=== PATIENT | male | born 1995 | race Caucasian/White ===

== ENCOUNTER 2023-05-12 17:42 | Emergency (ER) | payer OTHER, SELFPAY ==
[2023-05-12 17:42] VITALS: BP 138/99; PULSE 72; RESP 16; TEMP 36.6; O2SAT 97; BMI 23.3
--- NOTE | 2023-05-12 17:50 | RAD_ITS ---
INDICATION: PAIN, INJURY EXAMINATION/TECHNIQUE: X-RAY - RIGHT XR Hand Min 3 Views 4 VIEWS COMPARISON: No relevant prior comparison study available FINDINGS: SOFT TISSUES: No soft tissue swelling or gas. No radiopaque foreign body. BONES/JOINTS: Acute minimally displaced obliquely oriented fracture of the fourth proximal metacarpal which may be reaching the carpometacarpal joint.. Normal alignment. Preservation of the joint space.. No sclerotic or destructive changes observed. RAD/Hand Min 3 Views IMPRESSION: Acute minimally displaced obliquely oriented fracture of the fourth proximal carpal. Electronically Signed: Scar Smith MD at 18:20 EST ,
[2023-05-12 19:18] VITALS: RESP 16; O2SAT 100
--- NOTE | 2023-05-12 19:37 | EX.ED.UPPERE ---
HPI History of Present Illness Chief Complaint: Upper Extremity Injury Informant: patient Narrative Narrative: Patient presents with right hand injury. He is right-hand dominant. He states he had his right hand looked into his dog's leash when the dog took off and his hand twisted. He has pain along the fourth metacarpal. He denies pain at the wrist, forearm, or elbow. No paresthesias. PFSH PFSH Medical History no medical history no medical history Home Medications hydrocodone-acetaminophen 5-325mg 5mg-325mg 1 tab PO Q6H PRN PRN Pain 3 days #12 TABLETS 05/12/23 [Rx Last Taken Unknown] Allergy/AdvReac Type Severity Reaction Status Date / Time No Known Allergies Allergy Verified 05/12/23 17:44 Family History no significant family his Surgical History no surgical history Social History Smoking Status: Never smoker ROS ROS ED Constitutional Constitutional ED: Denies chills or fever(s) Eyes Eyes: Denies discharge from eye(s) ENT ENT ED: Denies discharge from eye(s), rhinorrhea or sore throat Cardiovascular Cardiovascular: Denies chest pain Respiratory/Chest Respiratory/Chest: Denies cough or dyspnea Gastrointestinal Gastrointestinal: Denies abdominal pain Musculoskeletal Musculoskeletal: Reports extremity pain Integumentary Denies Abrasions or rash Neurologic Neurologic: Denies headache(s) or paresthesias Allergic/Immunologic Allergic/Immunologic ED: Denies lip swelling or urticaria EXAM Physical Exam Const Vital Signs: 05/12/23 17:42 05/12/23 19:18 Temperature 97.8 F Temperature Source Temporal Pulse Rate 72 Respiratory Rate 16 16 Blood Pressure 138/99 H Blood Pressure Mean 112 Pulse Ox 97 100 Oxygen Delivery Method Room Air Room Air Positive well nourished and well developed General Appearance ED: well developed HEENT Reports moist mucous membranes Eyes EOMs intact bilaterally Neck supple Chest Wall inspection of chest normal and palpation of chest normal Resp normal respiratory effort and clear to auscultation bilaterally Cardio regular rate and regular rhythm Extremity Extremity Narrative: Patient with slight deformity and tenderness along the fourth metacarpal. No tenderness at the wrist or forearm. Good cap refill distally. With stabilization of the MCP joints he can flex and extend his fingers. Neuro oriented x3 and moves all extremities Psych mental status grossly normal MDM MDM MDM Narrative Medical decision making narrative: Right wrist x-ray obtained per nursing protocol prior to my initial evaluation. On my review of the images patient has a oblique fracture of the mid to proximal right fourth metacarpal. Slight displacement noted. Radiology interpretation reviewed and agrees. Images reviewed with patient and significant other. He is placed in a ulnar gutter splint. I did recommend follow-up with hand surgery as these will often require pinning for appropriate healing. This especially important given this is his dominant hand and his young age. He was given information for follow-up with [facility] hand. He was given a prescription for [place] for pain control. Radiography Diagnostic Testing: Clinical Impression(s) from Imaging Studies Hand X-Ray 05/12/23 17:50 IMPRESSION: Acute minimally displaced obliquely oriented fracture of the fourth proximal carpal. Electronically Signed: Scar Smith MD at 18:20 EST , Procedures Upper Extremity Splints Upper Extremity Splint: Orthoglass and Ulnar gutter Splint Fabrication: Fabricated Location: Right Discharge Plan Triage Chief Complaint: Upper Extremity Injury ED Provider: Devora Holguin Dx/Rx/DC Orders Clinical Impression: Hand fracture, right Instructions: ED Closed Hand Fracture (Adult) Prescriptions: New hydrocodone-acetaminophen 5-325 mg tablet 1 tab PO Q6H PRN PRN (Reason: Pain) 3 Days Qty: 12 0RF Primary Care Provider: TORRES GREGORY Referrals: Eusebio Ray MD [Non-Staff] - As soon as possible NOT,DEFINED [Non-Staff] - Disposition Disposition: Home, Self Care Discharge Date/Time: 05/12/23 20:17 Capacity Legal Cardiopulmonary Technician And Eeg Tech Reflex Medical hold order details:: IF a medical hold is selected below, a suggested order for a MEDICAL HOLD will reflex upon signing the document. Next of kin: [place] law dictates a PRIORITY LIST for identifying legal decision-maker/legal next of kin in the following order (LNOK): 1st: The patient?s legal guardian, if any 2nd: The patient's spouse (if status is questionable, consult Risk Management) 3rd: The patient?s adult child(pamela) (majority, if multiple children) 4th: The patient?s parents 5th: The patient?s adult siblings (majority, if multiple children siblings)
--- OUTSIDE RECORDS SUMMARY | 2023-05-12 20:01 | XMS RPT_ITS | CCD ---
Author Name Unknown Address [address] [place] [address] Organization [facility] Care Team Providers Care Lens Shaper Grinder Name Role Phone Paul Estrada Primary Care Provider [phone] Unavailable Primary Care Provider Unavailmiranda e Courtney Gregory DO Primary Care Provider COURTNEY GREGORY Attending Unavailable COURTNEY GREGORY Primary Care Unavailable Medications Current Medications Medication Drug Class(es) Dates Sig (Normalized) Sig (Original) doxycycline monohydrate 100 mg oral capsule (2 sources) Tetracycline-clas s Drug Start: 04-18-2022 End: 04-25-2022 take 1 capsule by mouth twice daily doxycycline monohydrate (MONODOX) 100 mg capsule Indications: Urethral discharge in male Take 1 capsule by mouth twice daily for 7 days. 14 capsule 0 04/18/2022 04/25/2022 Active Completed/Discontinued Medications Medication Drug Class(es) Dates Sig (Normalized) Sig (Original) cefTRIAXone 500 mg injection (1 source) Cephalosporin Antibacterial Start: 04-18-2022 End: 04-18-2022 cefTRIAXone 500 mg intramuscular injection (ROCEPHIN) Protein powd (1 source) End: 04-18-2022 Protein powd Take by mouth. 0 04/18/2022 Discontinued Problems Active Problems Problem Classification Problem Date Documented Da te Episodic/Chronic Anxiety disorders (1 source) Social phobia; Translations: [Social anxiety disorder] Onset: 02-25-2016 04-05-2016 Chronic Genitourinary symptoms and ill-defined conditions (2 sources) Discharge from penis; Translations: [Urethral discharge, unspecified] Episodic Mood disorders (1 source) Major depressive disorder; Translations: [Major depression] Onset: 07-26-2015 04-05-2016 Chronic Other eye disorders (1 source) Retained foreign body in eye; Translations: [Foreign body of left eye, initial encounter] Chronic Other eye disorders (1 source) Corneal rust ring; Translations: [Corneal rust ring of left eye] Episodic Other inflammatory condition of skin (1 source) Scalp psoriasis; Translations: [Psoriasis, unspecified] 02-03-2023 Chronic Other inflammatory condition of skin (2 sources) Psoriasis, unspecified; Translations: [Psoriasis, unspecified] Onset: 02-03-2023 Chronic Other male genital disorders (1 source) Lesion of penis; Translations: [Disorder of penis, unspecified] 02-03-2023 Chronic Other male genital disorders (2 sources) Disorder of penis, unspecified; Translations: [Disorder of penis, unspecified] Onset: 02-03-2023 Chronic Past or Other Problems Problem Classification Problem Date Documented Da te Episodic/Chronic Headache; including migraine (1 source) Tension-type headache; Translations: [Tension headache] Onset: 10-17-2015 04-05-2016 Episodic Other nervous system disorders (1 source) H/O: migraine; Translations: [History of migraine] Resolved: 10-17-2015 10-17-2015 Episodic Results Test Name Value Interpretation Reference Range Facil ity Vital Signs Date Time Vital Sign Value Performing Clinician Facility 04-18-2022 12:37-0500 Body temperature 97.7 [degF] Issac Mulligan MD Work Phone: [facility] 04-18-2022 12:37-0500 Body weight 73.57 kg Issac Mulligan MD Work Phone: [facility] 04-18-2022 12:37-0500 Diastolic blood pressure 92 mm[Hg] Issac Mulligan MD Work Phone: [facility] 04-18-2022 12:37-0500 Heart rate 112 /min Issac Mulligan MD Work Phone: [facility] 04-18-2022 12:37-0500 Respiratory rate 18 /min Issac Mulligan MD Work Phone: [facility] 04-18-2022 12:37-0500 SaO2% (BldA) [Mass fraction] 97 % Issac Mulligan MD Work Phone: [facility] 04-18-2022 12:37-0500 Systolic blood pressure 132 mm[Hg] Issac Mulligan MD Work Phone: [facility] 12-22-2019 09:55-0400 Body Temperature 98.01 [degF] Jean Jc [facility] 12-22-2019 09:55-0400 BP Diastolic 86 mm[Hg] Jean Jc [facility] 12-22-2019 09:55-0400 BP Systolic 144 mm[Hg] [facility] 12-22-2019 09:55-0400 Pulse (Heart Rate) 80 /min Jean Jc [facility] 12-22-2019 09:55-0400 Pulse Oximetry 98 % Jean Jc [facility] 12-22-2019 09:55-0400 Respiratory Rate 16 /min Jean Jc [facility] Encounters Encounter Date Encounter Type Care Provider Facility Start: 02-03-2023 End: 02-03-2023 ambulatory [facility] Start: 02-03-2023 End: 02-03-2023 Encounter for general adult medical examination without abnormal findings [facility] Start: 02-03-2023 End: 02-03-2023 Initial preventive medicine new pt age 18-39yrs [facility] Work Phone: [facility] Procedures Date Procedure Procedure Detail Performing Clinician Start: 04-18-2022 End: 04-18-2022 Culture bacterial quanttative colony count urine Issac Mulligan MD Work Phone: Start: 04-18-2022 Urnls dip stick/tabl et rgnt auto w/o microscopy Issac Mulligan MD Work Phone: Start: 03-01-2019 Antibody screen Plan of Treatment Date Care Activity Detail Author Start: 01-24-2044 Zoster Vaccines (1 of 2) Zoste r Vaccines (1 of 2) [facility] Start: 12-25-2022 Influenza vaccination Influenza Vacc ine (#1) [facility] Start: 12-25-2021 Influenza vaccination INFLUENZA (#1) [facility] Start: 04-26-2021 DEPRESSION ASSESSMENT DEPRESSION ASS ESSMENT [facility] Start: 12-26-2019 Influenza vaccination Flu vaccine (# 1) [place] Start: 01-24-2016 DTaP/Tdap/Td Vaccine s (1 - Tdap) DTaP/Tdap/Td Vaccines (1 - Tdap) [facility] Start: 2013 DTaP/Tdap/Td vaccine (1 - Tdap) DTaP/Tdap/Td vaccine (1 - Tdap) [place] Start: 2013 Urine microalbumin profile DTAP,TDAP,TD (1 - Tdap) [facility] Start: 01-24-2012 HEPATITIS C SCREENING HEPATITIS C [facility] Start: 01-24-2012 Hepatitis C screening Hepatitis C [facility] Start: 01-24-2012 HIV SCREENING HIV SCREENING [facility] Start: 2009 HIV screening HIV screen [place], [place] Start: 2005 HPV vaccine (1 - Mal e 2-dose series) HPV vaccine (1 - Male 2-dose series) [place] Start: 1995 MMR Vaccines (1 of 1 - Standard series) MMR Vaccines (1 of 1 - Standard series) [facility] Start: 1995 Varicella vaccination Varicell a Vaccines (1 of 2 - 2-dose childhood series) [facility] Start: 1995 Varicella vaccine (1 of 2 - 2-dose childhood series) Varicella vaccine (1 of 2 - 2-dose childhood series) [place] Start: 1994 COVID-19 VACCINE (#1) COVID-19 VACCI NE (#1) [facility] Start: 1994 HEPATITIS B (1 of 3 - 3-dose series) HEPATITIS B (1 of 3 - 3-dose series) [facility] Start: 1994 Hepatitis B Vaccines (1 of 3 - 3-dose series) Hepatitis B Vaccines (1 of 3 - 3-dose series) [facility] Start: 1994 HIV screening HIV Screening [facility] Start: 1994 Lipid panel Lipid Panel [facility] Start: 1994 Yearly Adult Physical Yearly Adult P hysical [facility] Immunizations Immunization Date Immunization Notes Care Provider Dylon lowe 05-13-2016 tuberculin skin test ; purified protein derivative solution, intradermal [facility] 08-30-2015 tuberculin skin test ; purified protein derivative solution, intradermal Jean Dickson [facility] Payers Date Payer Category Payer Private Health Insurance [id number] 2021 Private Health Insurance [id number] 2021 Unknown [id number] 2017 [employer] ( and others) [facility] [id number] 2017-Present [address] [place] [address] [id number] 1994 Unknown [id number] Social History Date Type Detail Facility Start: 12-22-2019 End: 02-03-2023 Tobacco smoking status NHIS Never smoker [facility] Start: 12-22-2019 End: 02-03-2023 Tobacco use and exposure Never used [place] Start: 12-22-2019 Alcohol intake Current drinke r of alcohol (finding) [place] Start: 08-02-2015 Alcohol Comment ocassionally [facility] [place] Start: 1994 Sex Assigned At Not on file [place] Start: 01-24-2023 End: 02-03-2023 Exposure to SARS-CoV-2 (event) Not sure [place] Start: 02-03-2023 Alcohol intake Lifetime non-d katya (finding) [facility] Work Phone: Gender identity Not on file [facility] Work [facility]: Medical Equipment Procedure Code Equipment Code Equipment Origin al Text Equipment Identifier Dates fluorescein ophthalmic strip 1 mg [id number] Start: 12-22-2019 End: 12-22-2019 Wire, Isael, Dual Trocar, 0.045 X 4 In, Stainless Steel Case [id number] Start: 03-01-2019 History of Present illness Narrative 02-03-2023 Courtney Gregory, DO - 02/03/2023 10:30 AM EDT Note Date & Type Note Facility 02-03-2023 History of Present illness Narrative Subjective Patient ID: Adam Ware is a 28 y.o. male who presents for Annual Exam, Psoriasis, and spots on penis. HPI Diet: low calorie, well rounded Supplements/vitamins: none Alcohol use: N Caffeine intake: N Exercise: Y, regularly Sleep: no issues Last dental appointment: last week Last eye appointment: few years ago Anxiety/Depression: see below Cscope: n/a Fmhx colon cancer: N Tobacco use/Lung cancer screening: N Recreational drug use: N Immunizations: due for Tdap Would like refill on his shampoo for psoriasis. Used to dermatology PHQ-9 :4 MARINA-7: 7 Reports current anxiety no depression. Feels stable and as though this is manageable. No panic attacks recently, no SI. Penile lesions X 10 years No known h/o HPV Nonpainful, not itching Has on average 4-6 Never fluctuate in size and do not resolve No prior treatment, no eval by dermatology Review of Systems All other systems reviewed and are negative. Objective There were no vitals taken for this visit. Physical Exam [employer] Con[employer] Blower Present: Yes. [place] Con[employer] Blower Name/Title: Mylene Dale MA Examination Chaperoned: Genitourinary Exam Constitutional: Well developed, well nourished, alert and in no acute distress. Head and Face: Normocephalic, atraumatic. Eyes: Normal external exam. Pupils equally round and reactive to light with normal accommodation and extraocular movements intact. ENT: External inspection of ears normal, tympanic membranes visualized and normal. Nasal mucosa, septum, and turbinates normal. Oral mucosa moist, oropharynx clear. Neck: Supple, no lymphadenopathy or masses. Thyroid not enlarged, no palpable nodules. Cardiovascular: Regular rate and rhythm, normal S1 and S2, no murmurs, gallops, or rubs. Radial pulses normal. No peripheral edema. No carotid bruits. Pulmonary: No respiratory distress, lungs clear to auscultation bilaterally. No wheezes, rhonchi, rales. Abdomen: Soft, nontender, nondistended, normal bowel sounds. No masses palpated. No hernias. Genitourinary: +erythematous and flesh colored minute papules notes at base of penis. Musculoskeletal: Gait normal. Muscle strength/tone normal. Normal range of motion of all extremities. Skin: Warm, well perfused, normal skin turgor and color, no lesions or rashes noted. Neurologic: Cranial nerves II-XII grossly intact. Deep tendon reflexes were 2+ and symmetric. Sensation normal bilaterally. Psychiatric: Mood calm and affect normal. Assessment/Plan It is highly recommended that you be evaluated by dermatology. We discussed that the penile lesions appear to be consistent with HPV (virus). This is the virus that can potentially cause penile and cervical cancers. Dermatology: [facility] Recommendations for men annual wellness exam: Colonoscopy at age 50 or earlier if positive family history of colon cancer Discuss prostate cancer screening between ages 55-69 or sooner if family history of prostate cancer One time screen for abdominal aortic aneurysm for men ages 65-75 who have ever smoked Screening for lung cancer with low-dose CT in all adults age 55-77 who have a 30 pack-year smoking history and currently smoke or have quit within the past 15 years Follow a healthy diet (Dash diet, Mediterranean diet) Exercise 150 min/wk Maintain healthy weight (BMI < 25) Do not smoke Alcohol in moderation (up to 2 drinks/day) Get enough sleep (7-8 hours/night) Make sure immunizations are up to date (influenza, pneumococcal, Tdap, shingles if age > 50)-due for Tdap Visit dentist twice yearly Follow up in 1 year documented in this encounter [facility] Work Phone: Note 04-20-2022 Telephone Encounter - Courtney Lopez RN - 04/20/2022 8:52 AM ESTTelephone Encounter - Yaa Eason MA - 04/20/2022 8:05 AM ESTTelephone Encounter - Suma Polk APRN.CNP - 04/19/2022 3:28 PM EST Note Date & Type Note Facility 04-20-2022 Miscellaneous Notes Formattin g of this note might be different from the original. Patient notified of results and provider's instructions. Patient verbalizes understanding. Courtney Lopez RN Left message for pt to call back. Yaa Eason MA Urine culture and gonorrhea culture negative. You were positive for Chlamydia - continue doxycycline as prescribed at visit, abstinence for 7 days, partner needs treated. Suma Polk APRN.NIR documented in this encounter [facility] Progress note 04-18-2022 Note Date & Type Note Facility 04-18-2022 Note HNO ID: [id number] Author: Issac Mulligan MD Service: ? Author Type: Physician Type: Progress Notes Filed: 04/18/2022 1:40 PM Note Text: Patient presents with: STD: Check, discomfort and discharge x4 days Frequency of urination HPI: Symptoms for 4 days. Dysuria: Yes Discharge: yes Lesion: Denies erythema, rash, papule, pustule, vesicle, or ulcer Frequency: Yes Hematuria: No Nausea: No Fever or chills: No Abdominal pain: some Prior STI: had GC or CT once before New partner for a few weeks. MEDICATIONS: No current outpatient medications on file. No current facility-administered medications for this visit. ALLERGIES: ALLERGIES No Known Allergies VITALS: BP 132/92 Pulse 112 Temp 36.5 ?C (97.7 ?F) Resp 18 Wt 73.6 kg (162 lb 3.2 oz) SpO2 97% BMI 23.95 kg/m? PHYSICAL EXAM: GEN: NAD HEENT: EOMI, conjunctiva clear, moist mucous membranes HEART: regular rate and rhythm, no murmurs LUNGS: clear to auscultation, no wheezes or crackles, no increased WOB ABDOMEN: Soft, nondistended, no masses, + suprapubic pressure with palpation BACK: No CVA tenderness ASSESSMENT/PLAN: 1. Urethral discharge in male - ICD9: 788.7, ICD10: R36.9 (primary diagnosis) Patient would like treatment for suspected gonorrhea or chlamydia. - GC/CHLAMYDIA AMPLIF, URINE - CEFTRIAXONE 500 MG SOLUTION FOR INJECTION -Doxycycline twice a day for 7 days. Refrain from sexual intercourse 7 days. All partners should receive treatment to avoid reinfection. 2. Urinary frequency - ICD9: 788.41, ICD10: R35.0 - UA positive for trace gunnar esterase - Send urine for culture, likely urethritis rather than cystitis. Has received rocephin today. - UA DIP, URINE (POC) Issac Mulligan MD [facility] History of Present illness Narrative 04-18-2022 Issac Mulligan MD - 04/18/2022 12:56 PM EST Note Date & Type Note Facility 04-18-2022 History of Presen t illness Narrative Patient presents with: STD: Check, discomfort and discharge x4 days Frequency of urination HPI: Symptoms for 4 days. Dysuria: Yes Discharge: yes Lesion: Denies erythema, rash, papule, pustule, vesicle, or ulcer Frequency: Yes Hematuria: No Nausea: No Fever or chills: No Abdominal pain: some Prior STI: had GC or CT once before New partner for a few weeks. MEDICATIONS: No current outpatient medications on file. No current facility-administered medications for this visit. ALLERGIES: ALLERGIES No Known Allergies VITALS: BP 132/92 Pulse 112 Temp 36.5 C (97.7 F) Resp 18 Wt 73.6 kg (162 lb 3.2 oz) SpO2 97% BMI 23.95 kg/m PHYSICAL EXAM: GEN: NAD HEENT: EOMI, conjunctiva clear, moist mucous membranes HEART: regular rate and rhythm, no murmurs LUNGS: clear to auscultation, no wheezes or crackles, no increased WOB ABDOMEN: Soft, nondistended, no masses, + suprapubic pressure with palpation BACK: No CVA tenderness ASSESSMENT/PLAN: 1. Urethral discharge in male - ICD9: 788.7, ICD10: R36.9 (primary diagnosis) Patient would like treatment for suspected gonorrhea or chlamydia. - GC/CHLAMYDIA AMPLIF, URINE - CEFTRIAXONE 500 MG SOLUTION FOR INJECTION -Doxycycline twice a day for 7 days. Refrain from sexual intercourse 7 days. All partners should receive treatment to avoid reinfection. 2. Urinary frequency - ICD9: 788.41, ICD10: R35.0 - UA positive for trace gunnar esterase - Send urine for culture, likely urethritis rather than cystitis. Has received rocephin today. - UA DIP, URINE (POC) Issac Mulligan MD documented in this encounter [facility] Evaluation note Note Date & Type Note Facility documented in this encounter [facility] Evaluation note Note Date & Type Note Facility documented in this encounter [facility] Work Phone: Reason for referral (narrative) Consultation (Routine) - Authorized Note Date & Type Note Facility Referral ID Status Reason Start Date Expiration Date V isits Requested Visits Authorized [id number] Authorized 02/03/2023 08/02/2023 1 1 [facility] Work Phone: Summary Purpose Family History No Family History Records FoundNo Family History Records FoundNo Family History Records Found Advance Directives No Advanced Directives Records FoundDocuments on File Type Date Recorded 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 LeFort I Osteotomy 2. Bilateral Sagittal Split Osteotomy 3. Maxillomandibular fixation 4. 5. Condition at Discharge: Satisfactory Disposition at Discharge: .Home Vital Signs: T PRBPSpO2 [id number]% Date/Time03/02 16: 16: 16: 16: 16:11 Range(37C - 37.4C ) (55 - 93 ) (18 - 20 ) (129 - 144 )/ (67 - 82 ) (96% - 100% ) As of 01-Mar-2019 18:00:00, patient is on 4 L/min of oxygen via nasal cannula with humidification. Highest temp of 37.4 C (more content not included)... Note Post Operative Note: PreOp D iagnosis: Malocclusion Post-Procedure Diagnosis: Malocclusion Procedure: 1. LeFort I Osteotomy 2. Bilateral Sagittal Split Osteotomy 3. Maxillomandibular fixation 4. 5. Surgeon: Dr. Harsha Chance Resident/Fellow/Other Biometrics Instructor: Anselmo Jackson PGY5; Shruthi Lopez PGY4 Anesthesia: GA I.V. Fluids: 2L LR Estimated Blood Loss (mL): 200cc Blood Replacement: none Specimen: no Complications: None Findings: None Patient Returned To/Condition: PACU in stable condition Drains and/or Catheters: None Signature/Cosignature/Attestation: Note Completion: I am a:Resident/Fellow Attending AttestjosephI was present for the entire procedure Electronic Signatures: Shruthi Lopez (Resident)) (Signed 01-Mar-2019 14:35) Authored: Post Operative Note, Signature/Cosignature/Attestation Harsha Chance) (Signed 02-Mar-2019 14:01) Authored: Signature/Cosignature/Attestation Co-Signer: Post Operative Note, Signature/Cosignature/Attestation Last Updated: 02-Mar-2019 14:01 by (more content not included)... Procedure Findings Note Post Operative Note: PreOp D iagnosis: Malocclusion Post-Procedure Diagnosis: Malocclusion Procedure: 1. LeFort I Osteotomy 2. Bilateral Sagittal Split Osteotomy 3. Maxillomandibular fixation 4. 5. Surgeon: Dr. Harsha Chance Resident/Fellow/Other Biometrics Instructor: Anselmo Jackson PGY5; Shruthi Lopez PGY4 Anesthesia: GA I.V. Fluids: 2L LR Estimated Blood Loss (mL): 200cc Blood Replacement: none Specimen: no Complications: None Findings: None Patient Returned To/Condition: PACU in stable condition Drains and/or Catheters: None Signature/Cosignature/Attestation: Note Completion: I am a:Resident/Fellow Attending MayankI was present for the entire procedure Electronic Signatures: Shruthi Lopez (Resident)) (Signed 01-Mar-2019 14:35) Authored: Post Operative Note, Signature/Cosignature/Attestation Harsha Chance) (Signed 02-Mar-2019 14:01) Authored: Signature/Cosignature/Attestation Co-Signer: Post Operative Note, Signature/Cosignature/Attestation Last Updated: 02-Mar-2019 14:01 by (more content not included)... 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 It is your employer's responsibility to determine if restrictions can be accommodated. Today's Date: 12/22/19 Patient Name: Adam Ware : 1995 Employee may return to work no restrictions on (Date): 12/24/2019 Employee may return to work with the following restrictions on (Date): [] No bending [] No twisting/turning [] No squatting [] No climbing [] No prolonged sitting [] No standing longer than __ minutes [] No use of __ hand/arm/shoulder [] No pushing greater than __ pounds [] No pulling greater than __ pounds [] No lifting greater than __ pounds [] No reaching above shoulder height [] Do not operate safety sensitive machinery [] Keep bandage/splint clean and dry Other Restrictions/Comments: __ ED Provider Signature: Jean Dickson MD Work injuries require treatment by a [facility] certified provider. If follow-up care is needed please call one of the [facility] locations below. Sarah Minaya: [phone], [address], [place] [address] [place]: [phone] [address] [place] [address] [place]: [phone] [place] [address] [place] [address] [employer]: [phone] [address], [address], [place] [address] : [phone], [place] [address] * Attachments The following attachments cannot be sent through Care Everywhere. * Foreign Body in the Eye (Italian) documented in this encounter Assessments Diagnosis Foreign body of left eye, initial encounter Corneal rust ring of left eye Medications Administered Section Inactive Administered Medications - up to 3 most recent administrations Medication Order MAR Action Action Date Dose Rate Site cefTRIAXone 500 mg intramuscular injection (ROCEPHIN) 500 mg, INTRAMUSCULAR, ONCE, 1 dose, On 04/18/22 at 1330, Please document the antimicrobial indication: Empiric Given 04/18/2022 1:34 PM EST 500 mg Buttocks, Left Additional Source Comments (unrecognized sect ion and content) No Status Records FoundNo Status Records FoundNo Status Records Found INFORMATION SOURCE (unrecogn ized section and content) DATE CREATED AUTHOR AUTHOR'S ORGANIZ ATION 04/23/2022 [facility] DATE CREATED AUTHOR AUTHOR'S ORGANIZ ATION 02/05/2023 [facility] Ambulatory Reason for Visit (unrecogniz ed section and content) Reason Comments STD Check, discomfort an d discharge x4 daysFrequency of urination Reason Comments Results Reason Comments Annual Exam Psoriasis spots on penis Source Comments (unrecognize d section and content) In the event this informatio n is protected by the Federal Confidentiality of Alcohol and Drug Abuse Patient Records regulations: The Federal rules restrict any use of the information to criminally investigate or prosecute any alcohol or drug abuse patient.[facility] Center[facility] the event this information is protected by the Federal Confidentiality of Alcohol and Drug Abuse Patient Records regulations: The Federal rules restrict any use of the information to criminally investigate or prosecute any alcohol or drug abuse patient.[facility] Care Teams (unrecognized sec tion and content) FOR RECORDS PERTAINING TO PATIENTS WHO ARE OR HAVE BEEN ENROLLED IN A CHEMICAL DEPENDENCY/SUBSTANCEABUSE PROGRAM, SOME INFORMATION MAY BE OMITTED. This clinical summary was aggregated from multiple sources. Caution should be exercised in using it in the provision of clinical care. This summary normalizes information from multiple sources, and as a consequence, information in this document may materially change the coding, format and clinical context of patient data. In addition, data may be omitted in some cases. CLINICAL DECISIONS SHOULD BE BASED ON THE PRIMARY CLINICAL RECORDS. [facility] [employer] [facility]. provides no warranty or guarantee of the accuracy or completeness of information in this document.
[2023-05-12] MEDS: HYDROcodone Bitartrate/Apap 5/325 Tablet PO (20:03)
== END 2023-05-12 20:17 | disposition home or self-care (01) ==
LOC: ED 19:55
PROVIDERS: Emergency Provider Emergency Medicine; Visit Provider Emergency Medicine
DX: S62.304A Unspecified fracture of fourth metacarpal bone, right hand, initial encounter for closed fracture (principal); X58.XXXA Exposure to other specified factors, initial encounter; Y93.K9 Activity, other involving animal care
CPT/HCPCS: 29125; 73130; 99283